=== PATIENT | female | born 1970 | race Caucasian/White ===

== ENCOUNTER 2018-04-12 06:26 | Day surgery (SDC) | payer BC ==
[~2018-04-12 06:26] MED LIST: Lactated Ringers 1,000 ML IV SCH
[2018-04-12] MEDS ORDERED: fentaNYL 100 MCG/2 ML SDV ONE (07:41)
[2018-04-12] MEDS ORDERED: Propofol 200 MG/20 ML SDV ONE ×2 (07:41→09:22)
--- NOTE | 2018-04-12 13:27 | OR ---
DATE OF SURGERY: 04/12/2018. REFERRING PROVIDER: Arlen Lechuga PA-C. PRE-OPERATIVE DIAGNOSES: Bloody stools for past couple weeks. Patient averages 1-2 stools per day. No abdominal pain or pain with bowel movements. No family history of inflammatory bowel disease or colon cancer. This is the patient's first colonoscopy. POST-OPERATIVE DIAGNOSES: 1. Mild proctitis with some rectal bleeding and friable mucosa present. There was also some small clots present as well. Cold biopsies taken x4 bites. 2. Possible angiodysplasia measuring about 3 mm in size at 70 cm. Cold biopsy taken and then base cauterized using hot forceps. 3. Mild hemorrhoids with moderate-sized external hemorrhoidal skin tag. No acute inflammation or bleeding noted from these. 4. Normal distal ilium. PROCEDURE: Colonoscopy with cold biopsy x2 sites. Cautery performed at the base of the questionable angiodysplastic lesion at 70 cm. SURGEON: Zane Haque M.D. ANESTHESIA: Monitored anesthesia care. BOWEL PREP: Good. DESCRIPTION OF PROCEDURE: Porsche is 47-year-old female, who was brought to the endoscopy suite after discussing risks and benefits of the procedure. Informed consent was obtained for conscious sedation and colonoscopy with or without biopsy and/or polypectomy. We also discussed possibility of missed lesions. Pre-procedure exam was unremarkable. IV, oxygen, and monitors were placed. The patient was placed in the left lateral decubitus position. Sedation was administered and a digital rectal exam was performed which was remarkable for moderate-sized external hemorrhoidal skin tag, not acutely inflamed. Colonoscope was passed into the rectum and slowly advanced all the way to the cecum. Cecum was viewed and photographed. The ileocecal valve was intubated and distal ileum was normal in appearance. The colonoscope was slowly withdrawn and the mucosa was closed observed in a direct circumferential manner. The ascending colon was unremarkable. The transverse colon was unremarkable. The descending colon was unremarkable except for a possible angiodysplastic type lesion measuring about 3 mm in size. This was photographed, and cold biopsy taken. Using the hot forceps, the base of this was cauterized lightly. The sigmoid colon was unremarkable. Rectal mucosa was did reveal some mild proctitis with friable mucosa and some rectal bleeding. Small clots were present initially and were able to be suctioned. Cold biopsy x4 bites taken. Retroflexion was performed revealed some mild internal hemorrhoids, not acutely inflamed or bleeding. Scope was removed. The patient tolerated the procedure well. The patient was monitored until that baseline status. Discharge instructions were reviewed and the patient was discharged in good condition. COMPLICATIONS: None. TOTAL TIME: 23 minutes. ESTIMATED BLOOD LOSS: About 1 mL. RECOMMENDATIONS/FOLLOW-UP: We will await results of path report to determine the need for any additional evaluation and/or treatment and when to follow up. We will have the patient avoid any aspirin for the next week. I would like to kindly thank Arlen Lechuga for this referral. DMB: 04/12/2018 08:48:17 MODL: 04/12/2018 13:18:36 /[id number]
== END 2018-04-12 10:00 | disposition home or self-care (01) ==
LOC: VM.SDS 06:26
PROVIDERS: ATTEND Family Medicine
DX: K92.1 Melena (principal); K62.89 Other specified diseases of anus and rectum; K64.8 Other hemorrhoids; K64.4 Residual hemorrhoidal skin tags; K63.89 Other specified diseases of intestine; E03.9 Hypothyroidism, unspecified; E66.01 Morbid (severe) obesity due to excess calories; Z68.38 Body mass index [BMI] 38.0-38.9, adult; Z79.899 Other long term (current) drug therapy; Z88.8 Allergy status to other drugs, medicaments and biological substances
CPT/HCPCS: J2704; J3010; J7120

== ENCOUNTER 2024-04-11 07:41 | Day surgery (SDC) | payer BC ==
[2024-04-11] MEDS: Lactated Ringers 1,000 ML IV SCH (08:02)
[2024-04-11] MEDS ORDERED: fentaNYL 100 MCG/2 ML SDV ONE (08:15)
[2024-04-11] MEDS ORDERED: Propofol 200 MG/20 ML SDV ONE (08:15)
[2024-04-11] MEDS ORDERED: Sodium Chloride 0.9% 10 ML Syringe FLUSH PRN (12:47)
[2024-05-09] MEDS ORDERED: Lactated Ringers 1,000 ML IV SCH (07:00)
== END 2024-04-11 10:32 | disposition home or self-care (01) ==
LOC: VM.SDS 07:41
PROVIDERS: ATTEND Family Medicine
DX: K29.50 Unspecified chronic gastritis without bleeding (principal); K20.0 Eosinophilic esophagitis; K31.89 Other diseases of stomach and duodenum; K21.9 Gastro-esophageal reflux disease without esophagitis; K44.9 Diaphragmatic hernia without obstruction or gangrene; E03.9 Hypothyroidism, unspecified; E66.9 Obesity, unspecified; R73.01 Impaired fasting glucose; Z79.84 Long term (current) use of oral hypoglycemic drugs; Z79.899 Other long term (current) drug therapy; Z68.38 Body mass index [BMI] 38.0-38.9, adult
CPT/HCPCS: 00731; J2704; J3010; J7120